=== PATIENT | male | born 1965 | race Caucasian/White ===

== ENCOUNTER 2022-06-17 18:08 | Inpatient (IN) | payer OTHER ==
[~2022-06-17] VITALS: Ht 198.1 cm; Wt 113.5 kg
--- NOTE | 2022-06-17 18:24 | NUR ---
ekg done, handed to MD for review. pt placed on monitors.
--- NOTE | 2022-06-17 18:36 | NUR ---
18G placed on right ac, tolerated. site secured.
[2022-06-17] MEDS ORDERED: DEXT10TA19 PO (18:46)
[2022-06-17] MEDS ORDERED: TRINTELLIX PO (18:46)
[2022-06-17] MEDS ORDERED: EMTR1TAB14 PO (18:46)
[2022-06-17] MEDS ORDERED: DULA1.5P SQ (18:46)
[2022-06-17] MEDS ORDERED: ASPI81TA31 PO (18:46)
[2022-06-17] MEDS ORDERED: BENA20TA9 PO (18:46)
[2022-06-17] MEDS ORDERED: METO200T49 PO (18:46)
[2022-06-17] MEDS ORDERED: LURA40TA PO (18:46)
[2022-06-17] MEDS ORDERED: TEST5GEL2 TP (18:46)
[2022-06-17] MEDS ORDERED: METF-442 PO (18:46)
[2022-06-17 18:52] LABS: HEMATOCRIT 47.3 % (36.7-47.1); MEAN CORPUSCULAR HEMOGLOBIN 31.2 uug (23.8-33.4); MEAN CORPUSCULAR VOLUME 91.3 fL (73.0-96.2); PLATELET COUNT (AUTO) 249 K/uL (152-348)
[2022-06-17 18:57] LABS: POTASSIUM 3.7 mmol/L (3.5-5.1)
--- NOTE | 2022-06-17 19:02 | NUR ---
RECEIVED SBAR REPORT FROM [facility]. PT NOTED TO BE IN BED RESTING COMFORTABLY, DENIES ANY PAIN/DISCOMFORT AT THIS TIME. NO SOB OR LABORED BREATHING, AFEBRILE.
[2022-06-17 19:10] LABS: BILIRUBIN,TOTAL 0.9 mg/dL (0.2-1.0); MAGNESIUM 1.6 mg/dL (1.8-2.4); TOTAL PROTEIN, SERUM 7.8 g/dL (6.4-8.2)
--- NOTE | 2022-06-17 19:52 | NUR ---
PT BEING TAKEN DOWN FOR CT.
[2022-06-17] MEDS ORDERED: MAGNESIUM SULFATE/D5W 300 ML ONE (21:37)
[2022-06-17] MEDS: MAGNESIUM SULFATE/D5W 100 ML IV SCH (21:44)
--- NOTE | 2022-06-17 23:41 | NUR ---
PT DOES NOT WISH FOR HIS FAMILY MEMBER OR CHARGE ATTENDANT TO BE NOTIFIED OF HIS ADMISSION.
--- NOTE | 2022-06-18 00:14 | NUR ---
KALI UPTON PAGED FOR PANEL CALL.
[2022-06-18] MEDS ORDERED: REMEDY ESSENTIAL ZINC PASTE 113 GM TP PRN (00:30)
[2022-06-18] MEDS ORDERED: ACETAMINOPHEN 325 MG TABLET PO PRN ×2 (00:30)
[2022-06-18] MEDS ORDERED: MAGNESIUM HYDROXIDE 30 ML LIQUID UDC PO PRN (00:30)
[2022-06-18] MEDS ORDERED: ONDANSETRON 4 MG/2 ML VIAL IV PRN ×2 (00:30)
--- NOTE | 2022-06-18 02:14 | NUR ---
GAVE REPORT TO
[2022-06-18 03:00] VITALS: BP_SYST 111; BP_SYST 112; BP_SYST 121; BP_DIAS 77; BP_DIAS 80; BP_DIAS 81
--- NOTE | 2022-06-18 03:03 | NUR ---
Pt. admitted to TELE , under care of Liya Boyd Dx: vanessa Belongs List completed
--- NOTE | 2022-06-18 03:05 | NUR ---
Received pt from er via [facility]. Under the care of Deb DAILY. Dx: JAEL, Dehydration. Pt awake, alert and orientedx4. Pt in no acute distress.Belonging list done. retirement assessment done. Admission and care plan initiated. Safety and comfort provided. Will continue to monitor.
[2022-06-18 03:10] VITALS: BP 121/81
[2022-06-18] MEDS: IV NS 1000 ML 1,000 ML IV PRN ×2 (05:19→18:35)
--- NOTE | 2022-06-18 06:11 | NUR ---
Pt in no acute distress. Prescribed medication given and pt tolerated it well. Pt iv intact. Pt can make his needs known. Pt afebrile. Safety and comfort provided. Will endorse to incoming nurse for continuity of care.
[2022-06-18 06:37] LABS: HEMATOCRIT 45.1 % (36.7-47.1); PLATELET COUNT (AUTO) 244 K/uL (152-348)
[2022-06-18 06:50] LABS: CREATININE 1.7 mg/dL (0.6-1.3); PHOSPHOROUS 3.6 mg/dL (2.5-4.9); POTASSIUM 3.9 mmol/L (3.5-5.1)
[2022-06-18] MEDS ORDERED: TRINTELLIX 20 MG PO SCH (09:00)
[2022-06-18] MEDS ORDERED: METFORMIN HCL 850 MG TABLET PO SCH (09:00)
[2022-06-18] MEDS ORDERED: [UNRECOGNIZED DRUG - OTHER] PO SCH (09:00)
[2022-06-18] MEDS: ASPIRIN 81 MG TAB.CHEW PO SCH (09:15)
[2022-06-18] MEDS: ENOXAPARIN SODIUM 40 MG/0.4 ML DISP.SYRIN SQ SCH (09:27)
[2022-06-18 11:40] VITALS: BP 121/77
[2022-06-18] MEDS ORDERED: DEXTROSE 50% 50 ML DISP.SYRIN IV PRN (15:00)
--- NOTE | 2022-06-18 15:00 | NUR ---
SPOKE WITH PATIENT THAT PER [facility] HE WILL NEED TO BRING IN HIS HIV DRUGS FROM HOME BUT PATIENT STATED THAT HE HAS NO ONE THAT CAN BRING IN THE MEDICATIONS PHARMACY AWARE
[2022-06-18 16:00] VITALS: BP 117/80
[2022-06-18] MEDS: BLOOD SUGAR DIAGNOSTIC 1 EACH STRIP VI SCH ×2 (16:31→20:29)
[2022-06-18] MEDS ORDERED: LURASIDONE HCL 20 MG PO SCH (18:00)
--- NOTE | 2022-06-18 18:49 | NUR ---
PATIENT IS RESTING WELL WITH IVF ORDERED WITH NO S/S OF INFILTERATION ON SITE CALL LIGHTS AND HIS PERSONAL BELONGINGS ARE WITHIN EASY REACH PATIENT AWARE THAT WE NEED URINE SPECIMEN BUT HE GOES INTO THE TOILET INSTEAD OF USING THE URINAL.
--- NOTE | 2022-06-18 19:30 | NUR ---
Received pt awake, alert and orientedx4. Pt iv intact. Pt on room air. Pt in no acute distress. Safety and comfort provided. Will continue to monitor.
[2022-06-18] MEDS: INSULIN REGULAR, HUMAN 300 UNIT/3 ML VIAL SQ PRN (20:30)
[2022-06-18 20:49] VITALS: BP 90/50
[2022-06-18 20:53] VITALS: BP 105/85
[2022-06-19 00:08] VITALS: BP 100/62
[2022-06-19 04:59] VITALS: BP 106/62
[2022-06-19] MEDS: BLOOD SUGAR DIAGNOSTIC 1 EACH STRIP VI SCH ×3 (06:31→16:53)
--- NOTE | 2022-06-19 06:37 | NUR ---
Pt in no acute distress. Pt iv intact.Pt on sinus rhythm. Pt can make his needs known. Prescribed medication given and pt tolerated it well. Safety and comfort provided.Vital signs stable. All needs are met. Will endorse to incoming nurse for continuity of care.
[2022-06-19 07:06] LABS: *BILIRUBIN,URIN NEGATIVE (NEGATIVE); *BLOOD, URINE NEGATIVE (NEGATIVE); *CLARITY,URINE CLEAR (CLEAR); *COLOR,URINE YELLOW (YELLOW); *KETONES,URINE NEGATIVE (NEGATIVE); *UROBILINOGEN,URINE 0.2 E.U./dl (NORMAL); LEUKOCYTE ESTERASE ,URINE NEGATIVE (NEGATIVE); NITRITE, URINE NEGATIVE (NEGATIVE); PH,URINE 5.5 (5.0-8.0); UGLUCOSE NEGATIVE (NEGATIVE)
[2022-06-19 07:27] LABS: CREATININE 1.2 mg/dL (0.6-1.3)
[2022-06-19 07:28] LABS: *CREATININE,URINE 204.3 mg/dL (30-125)
[2022-06-19] MEDS: ASPIRIN 81 MG TAB.CHEW PO SCH (08:33)
[2022-06-19] MEDS: ENOXAPARIN SODIUM 40 MG/0.4 ML DISP.SYRIN SQ SCH (08:34)
[2022-06-19 11:53] VITALS: BP 112/69
[2022-06-19] MEDS: INSULIN REGULAR, HUMAN 300 UNIT/3 ML VIAL SQ PRN (13:15)
--- NOTE | 2022-06-19 14:07 | NUR ---
Pt went to [facility] for CTA of heart with 3D image. Transport by ambulance. 18g ac IV intact and patent. Tele monitor removed for transfer.
--- NOTE | 2022-06-19 15:18 | NUR ---
Pt is back from [facility] [facility], CTA completed. Vitals stable 113/73.
[2022-06-19 15:37] VITALS: BP 113/73
--- NOTE | 2022-06-19 18:25 | NUR ---
Pt is discharged home, Pt is a/o x 4, ambulatory, no complaints of pain or weakness. CTA results given to pt along with all personal belongings and all discharge papers/education. Pt will be taking the bus, he stated that he is stable to ambulate to bus stop and does not need resources from hospital arranged. no signs of acute distress, IV and ID bands removed.
[2022-06-20 11:07] LABS: A/G RATIO 0.7 (0.7-1.7); ALBUMIN 2.4 g/dL (2.9-4.4); ALPHA-1-GLOBULIN 0.2 g/dL (0.0-0.4); ALPHA-2-GLOBULIN 0.5 g/dL (0.4-1.0); BETA GLOBULIN 0.9 g/dL (0.7-1.3); GAMMA GLOBULIN 1.9 g/dL (0.4-1.8); GLOBULIN, TOTAL 3.5 g/dL (2.2-3.9); M-SPIKE Not Observed g/dL (Not Observed)
== END 2022-06-19 18:10 | disposition home or self-care (01) | DRG 422 ==
LOC: ER 18:10 → TELE3 06-18 02:45
PROVIDERS: ADMIT Internal Medicine; ATTEND Internal Medicine
DX: E86.0 Dehydration (principal); N17.0 Acute kidney failure with tubular necrosis; I95.9 Hypotension, unspecified; I25.10 Atherosclerotic heart disease of native coronary artery without angina pectoris; E78.5 Hyperlipidemia, unspecified; E83.42 Hypomagnesemia; I10 Essential (primary) hypertension; F39 Unspecified mood [affective] disorder; E11.65 Type 2 diabetes mellitus with hyperglycemia; F90.9 Attention-deficit hyperactivity disorder, unspecified type; Z79.84 Long term (current) use of oral hypoglycemic drugs; R07.9 Chest pain, unspecified
CPT/HCPCS: 36415; 71250; 76770; 83735; 83970; 84100; 84155; 84156; 84165; 84300; 84443; 84484; 85025; 93005; 93307; A4663; G0378; J1650; J1815; J3475; J7040